=== PATIENT | female | born 1990 | race Two or more races ===

== ENCOUNTER → 2022-06-27 | Outpatient (CLI) | payer MEDICAID ==
[2022-06-27 08:52] LABS: Basophils # (auto) 0 10 ^3/uL (0-0.2); Basophils % (auto) 0.4 % (0.0-2.0); Eosinophils # (auto) 0.1 10 ^3/uL (0-0.8); Eosinophils % (auto) 1.3 % (0.0-7.0); Hematocrit 37.3 % (36.0-46.0); Hemoglobin 11.9 g/dL (12.2-16.2); Lymphocytes # (auto) 2.4 10 ^3/uL (0.4-5.4); Lymphocytes % (auto) 23.1 % (10.0-50.0); Mean Corpuscular Hemoglobin 27.2 pg (28.0-32.0); Mean Corpuscular Hgb Conc. 31.9 g/dL (32.0-36.0); Mean Corpuscular Volume 85.1 fL (80.0-100.0); Monocytes # (auto) 0.6 10 ^3/uL (0-1.3); Neutrophils # (auto) 7.3 10 ^3/uL (1.6-8.6); Neutrophils % (auto) 69.2 % (37.0-80.0); Red Blood Cells 4.39 10^6/uL (4.0-5.20); Red Cell Distribution Width 13.3 % (11.8-14.3); White Blood Cell 10.5 10^3/uL (4.4-10.8)
== END | disposition home or self-care (01) ==
LOC: LAB 08:36
PROVIDERS: ATTEND Obstetrics & Gynecology
DX: Z34.80 Encounter for supervision of other normal pregnancy, unspecified trimester (principal); O99.810 Abnormal glucose complicating pregnancy
CPT/HCPCS: 36415; 82951; 83036; 85025

== ENCOUNTER → 2022-08-20 | Outpatient (CLI) | payer MEDICAID ==
[2022-08-20 09:20] LABS: Basophils # (auto) 0 10 ^3/uL (0-0.2); Basophils % (auto) 0.2 % (0.0-2.0); Eosinophils # (auto) 0.1 10 ^3/uL (0-0.8); Eosinophils % (auto) 1.4 % (0.0-7.0); Hematocrit 39.6 % (36.0-46.0); Hemoglobin 12.8 g/dL (12.2-16.2); Lymphocytes # (auto) 2.2 10 ^3/uL (0.4-5.4); Lymphocytes % (auto) 25.8 % (10.0-50.0); Mean Corpuscular Hgb Conc. 32.3 g/dL (32.0-36.0); Mean Corpuscular Volume 83.7 fL (80.0-100.0); Monocytes # (auto) 0.6 10 ^3/uL (0-1.3); Monocytes % (auto) 6.7 % (0.0-12.0); Neutrophils # (auto) 5.5 10 ^3/uL (1.6-8.6); Neutrophils % (auto) 65.9 % (37.0-80.0); Red Blood Cells 4.73 10^6/uL (4.0-5.20); Red Cell Distribution Width 13.6 % (11.8-14.3); White Blood Cell 8.4 10^3/uL (4.4-10.8)
[2022-08-21 06:06] LABS: RPR Non Reactive (Non Reactive)
== END | disposition home or self-care (01) ==
LOC: LAB 08:38
PROVIDERS: ATTEND Obstetrics & Gynecology
DX: Z34.80 Encounter for supervision of other normal pregnancy, unspecified trimester (principal); Z3A.00 Weeks of gestation of pregnancy not specified
CPT/HCPCS: 36415; 84112; 85025; 86592

== ENCOUNTER 2022-09-04 19:03 | Observation (INO) | payer MEDICAID ==
[2022-09-04] MEDS ORDERED: PREN-129 PO (20:13)
== END 2022-09-04 20:26 | disposition home or self-care (01) ==
LOC: LDRP 19:03
PROVIDERS: ADMIT Obstetrics & Gynecology; ATTEND Obstetrics & Gynecology
DX: O62.9 Abnormality of forces of labor, unspecified (principal); O36.8330 Maternal care for abnormalities of the fetal heart rate or rhythm, third trimester, not applicable or unspecified; Z3A.37 37 weeks gestation of pregnancy
CPT/HCPCS: 59025; 76818; 81002; 94760; G0378

== ENCOUNTER 2022-09-25 09:03 | Observation (INO) | payer MEDICAID ==
[~2022-09-25 09:03] MED LIST: PREN-129 PO
== END 2022-09-25 10:03 | disposition home or self-care (01) ==
LOC: LDRP 09:03
PROVIDERS: ADMIT Obstetrics & Gynecology; ATTEND Obstetrics & Gynecology
DX: O48.0 Post-term pregnancy (principal); Z3A.40 40 weeks gestation of pregnancy
CPT/HCPCS: 59025; 81002; 94760; G0378

== ENCOUNTER 2022-09-27 15:33 | Observation (INO) | payer MEDICAID | END 2022-09-27 17:31 | disposition home or self-care (01) | LOC: LDRP 15:33 | PROVIDERS: ADMIT Obstetrics & Gynecology; ATTEND Obstetrics & Gynecology | DX: O48.0 Post-term pregnancy (principal); Z3A.40 40 weeks gestation of pregnancy | CPT/HCPCS: 59025; 76818; 81002; G0378 ==

== ENCOUNTER 2022-09-29 09:09 | Observation (INO) | payer MEDICAID | END 2022-09-29 10:38 | disposition home or self-care (01) | LOC: LDRP 09:09 | PROVIDERS: ADMIT Obstetrics & Gynecology; ATTEND Obstetrics & Gynecology | DX: O48.0 Post-term pregnancy (principal); Z3A.40 40 weeks gestation of pregnancy | CPT/HCPCS: 59025; 76818; 81002; 94760; G0378 ==

== ENCOUNTER 2022-10-01 07:39 | Inpatient (IN) | payer MEDICAID ==
[~2022-10-01] VITALS: Ht 144.8 cm; Wt 74.4 kg
[2022-10-01] MEDS ORDERED: LIDOCAINE 2%HCL (LOCAL ANESTH.) INJ 10ml MDV IJ PRN (13:30)
[2022-10-01] MEDS ORDERED: PENICILLIN G POT 5MIL/D5 50ML 50 ML IV ONE (13:30)
[2022-10-01] MEDS ORDERED: PHISODERM TOP SOLN 240ML BTL TOP PRN (13:30)
[2022-10-01] MEDS ORDERED: WITCH HAZEL-GLYCERIN PAD TOP PRN (13:30)
[2022-10-01] MEDS ORDERED: DERMOPLAST 60ML BOTTLE TOP PRN (13:30)
[2022-10-01] MEDS ORDERED: BUTORPHANOL TARTRATE 2 MG/1 ML VIAL IV PRN ×2 (13:30)
[2022-10-01] MEDS ORDERED: PROMETHAZINE HCL 25 MG/ML 1ML IV PRN (13:30)
[2022-10-01 14:25] LABS: Basophils # (auto) 0 10 ^3/uL (0-0.2); Basophils % (auto) 0.2 % (0.0-2.0); Eosinophils # (auto) 0.1 10 ^3/uL (0-0.8); Eosinophils % (auto) 1.2 % (0.0-7.0); Hematocrit 41.7 % (36.0-46.0); Hemoglobin 13.8 g/dL (12.2-16.2); Lymphocytes % (auto) 27.6 % (10.0-50.0); Mean Corpuscular Hemoglobin 27.5 pg (28.0-32.0); Mean Corpuscular Hgb Conc. 33.2 g/dL (32.0-36.0); Mean Corpuscular Volume 82.9 fL (80.0-100.0); Monocytes # (auto) 0.5 10 ^3/uL (0-1.3); Monocytes % (auto) 6.7 % (0.0-12.0); Neutrophils # (auto) 4.6 10 ^3/uL (1.6-8.6); Neutrophils % (auto) 64.3 % (37.0-80.0); Nucleated Red Blood Cells % 0.1 %; Red Blood Cells 5.03 10^6/uL (4.0-5.20); Red Cell Distribution Width 13.8 % (11.8-14.3); White Blood Cell 7.2 10^3/uL (4.4-10.8)
[2022-10-01] MEDS: LACTATED RINGER'S 1,000 ML IV SCH ×3 (14:33→22:24)
[2022-10-01 14:39] LABS: Albumin 2.9 g/dL (3.4-5.0); BUN/Creatinine Ratio 19.4; Calcium 9.4 mg/dL (8.5-10.1); Potassium 3.8 mmol/L (3.5-5.1)
[2022-10-01 14:40] LABS: INR 0.88 (0.9-1.15); Partial Thromboplastin Time 27.1 sec (24.6-33.4)
[2022-10-01 14:42] LABS: Amphetamine Screen, Urine NEGATIVE (NEGATIVE); Cannabinoid Screen, Urine NEGATIVE (NEGATIVE); Cocaine Screen, Urine NEGATIVE (NEGATIVE); Opiate Scree,Urine NEGATIVE (NEGATIVE); Phencyclidine Screen, Urine NEGATIVE (NEGATIVE)
[2022-10-01 14:42] LABS: Bilirubin, Total 0.2 mg/dL (0.2-1.0); Total Protein 7.3 g/dL (6.4-8.2)
[2022-10-01 14:44] LABS: Barbiturate Scree,Urine NEGATIVE (NEGATIVE); Benzodiazephine Screen, Urine NEGATIVE (NEGATIVE)
[2022-10-01] MEDS: miSOPROStol 50 MCG per PRE-CUT 1/2 TAB PO PRN ×2 (15:20→20:11)
[2022-10-01] MEDS ORDERED: LACT. RINGERS/OXYTOCIN 20UNITS 500 ML IV ONE ×2 (16:15→16:45)
[2022-10-01 16:48] LABS: Urine Specific Gravity 1.009 (1.001-1.035)
[2022-10-01 16:49] LABS: Urine Blood Negative /uL (Negative)
[2022-10-01] MEDS ORDERED: PENICILLIN G POTASSIUM 2,500,000 UNITS in D5W 5% 50 ML IV SCH (17:30)
[2022-10-01] MEDS: PENICILLIN G POTASSIUM 2,500,000 UNITS in D5W 5% 50 ML IV SCH ×2 (19:32→23:24)
[2022-10-02] MEDS: miSOPROStol 50 MCG per PRE-CUT 1/2 TAB PO PRN (00:52)
[2022-10-02] MEDS: PENICILLIN G POTASSIUM 2,500,000 UNITS in D5W 5% 50 ML IV SCH ×3 (03:08→11:01)
[2022-10-02] MEDS ORDERED: LACT. RINGERS/OXYTOCIN 20UNITS 500 ML IV ONE ×2 (04:45→05:15)
[2022-10-02] MEDS ORDERED: TERBUTALINE SULFATE 1 MG/ML 1ML VIAL SC PRN (04:45)
[2022-10-02] MEDS ORDERED: LACT. RINGERS/OXYTOCIN 20UNITS 1,000 ML IV SCH (05:00)
[2022-10-02 06:06] LABS: RPR Non Reactive (Non Reactive)
[2022-10-02] MEDS: LACTATED RINGER'S 1,000 ML IV SCH ×2 (07:14→10:44)
[2022-10-02] MEDS ORDERED: ROPIVACAINE HCL 200 ML EPI SCH (08:15)
[2022-10-02] MEDS ORDERED: LIDOCAINE HCL 2 %PF INJ 10ML AMP IJ ONE (08:15)
[2022-10-02] MEDS ORDERED: ePHEDrine SULFATE 50 MG/ML AMP IV ONE (08:15)
[2022-10-02] MEDS ORDERED: fentaNYL CITRATE 100 MCG/2 ML VL IV ONE (08:15)
[2022-10-02] MEDS ORDERED: NALOXONE HCL 0.4 MG/ML VIAL IV ONE (08:15)
[2022-10-02] MEDS ORDERED: FAMOTIDINE (10MG/ML) 2ML VL IV PRN (10:45)
[2022-10-02] MEDS ORDERED: DexAMETHasone SOD PHOS 10MG/1ML VIAL INJ IV ONE (12:13)
[2022-10-02] MEDS ORDERED: ceFAZolin 2 GM in D5W 5% 100 ML IV STA (15:17)
[2022-10-02] MEDS ORDERED: ceFAZolin 1GM/50ML 100 ML IV ONE (15:27)
[2022-10-02] MEDS ORDERED: HYDR-4902 PO (15:29)
[2022-10-02] MEDS ORDERED: IBUP800T27 PO (15:29)
[2022-10-02] MEDS ORDERED: DOCU-94 PO (15:29)
[2022-10-02] MEDS ORDERED: fentaNYL CITRATE 100 MCG/2 ML VL ONE ×2 (15:55→16:42)
[2022-10-02] MEDS ORDERED: MIDAZOLAM HCL 2MG/2ML 2ml VIAL (1mg/ml) ONE (15:55)
[2022-10-02] MEDS ORDERED: LACT. RINGERS/OXYTOCIN 20UNITS 1,000 ML IV ONE (16:00)
[2022-10-02] MEDS ORDERED: ONDANSETRON HCL 4 MG/2 ML VIAL IV PRN ×3 (16:00→18:30)
[2022-10-02] MEDS ORDERED: GUM (CHEWING) 1 GUM CHEW CHEW ONE ×2 (16:00→18:30)
[2022-10-02] MEDS ORDERED: oxyTOCIN 10 UNIT/ML 10ML VIAL ONE (16:23)
[2022-10-02] MEDS ORDERED: MEPERIDINE HCL (25 MG/ML) 1ML VIAL ONE (16:24)
[2022-10-02] MEDS ORDERED: ePHEDrine SULFATE 50 MG/ML AMP IV PRN (17:00)
[2022-10-02] MEDS ORDERED: MORPHINE SULFATE 4 MG/ML SYR/VIAL IV PRN (17:00)
[2022-10-02] MEDS ORDERED: HYDROmorphone HCL 2 MG/ML VL/or syr IV PRN (17:00)
[2022-10-02] MEDS ORDERED: LABETALOL HCL 5 MG/ML 4ML SYRINGE IV PRN (17:00)
[2022-10-02 18:00] VITALS: BP 131/69
[2022-10-02] MEDS ORDERED: LACTATED RINGER'S 1,000 ML IV SCH (18:30)
[2022-10-02 19:00] VITALS: BP 115/66
[2022-10-02] MEDS: ACETAMINOPHEN IV 1000 MG/100ML (10MG/ML) IV SCH (21:37)
[2022-10-02 23:00] VITALS: BP 112/61
[2022-10-02] MEDS: ceFAZolin 1GM/50ML 50 ML IV SCH (23:10)
[2022-10-02 23:23] LABS: Basophils # (auto) 0 10 ^3/uL (0-0.2); Eosinophils # (auto) 0 10 ^3/uL (0-0.8); Hemoglobin 12.1 g/dL (12.2-16.2); Lymphocytes # (auto) 0.9 10 ^3/uL (0.4-5.4); Monocytes # (auto) 0.3 10 ^3/uL (0-1.3); Monocytes % (auto) 1.9 % (0.0-12.0)
[2022-10-02 23:25] LABS: Basophils % (auto) 0.2 % (0.0-2.0); Hematocrit 37.3 % (36.0-46.0); Lymphocytes % (auto) 5.4 % (10.0-50.0); Mean Corpuscular Hgb Conc. 32.6 g/dL (32.0-36.0); Mean Corpuscular Volume 82.8 fL (80.0-100.0); Neutrophils % (auto) 92.5 % (37.0-80.0); Red Cell Distribution Width 13.8 % (11.8-14.3); White Blood Cell 16.3 10^3/uL (4.4-10.8)
[2022-10-03] VITALS (7 sets, daily range): BP systolic 92–112; BP diastolic 58–78
[2022-10-03 05:48] LABS: Basophils # (auto) 0 10 ^3/uL (0-0.2); Eosinophils # (auto) 0 10 ^3/uL (0-0.8); Lymphocytes # (auto) 1.2 10 ^3/uL (0.4-5.4); Monocytes # (auto) 0.7 10 ^3/uL (0-1.3); Red Cell Distribution Width 13.6 % (11.8-14.3)
[2022-10-03 05:51] LABS: Hematocrit 36.2 % (36.0-46.0); Hemoglobin 11.8 g/dL (12.2-16.2); Lymphocytes % (auto) 7.4 % (10.0-50.0); Mean Corpuscular Hemoglobin 27.1 pg (28.0-32.0); Mean Corpuscular Hgb Conc. 32.6 g/dL (32.0-36.0); Mean Corpuscular Volume 83.3 fL (80.0-100.0); Monocytes % (auto) 4.2 % (0.0-12.0); Neutrophils # (auto) 14.7 10 ^3/uL (1.6-8.6); Neutrophils % (auto) 88.4 % (37.0-80.0); Red Blood Cells 4.35 10^6/uL (4.0-5.20); White Blood Cell 16.6 10^3/uL (4.4-10.8)
[2022-10-03] MEDS: ACETAMINOPHEN IV 1000 MG/100ML (10MG/ML) IV SCH (07:07)
[2022-10-03] MEDS: ceFAZolin 1GM/50ML 50 ML IV SCH ×2 (07:14→15:50)
[2022-10-03] MEDS ORDERED: HYDROcodone-ACET 5/325MG TAB PO PRN (09:30)
[2022-10-03] MEDS: HYDROcodone-ACET 5/325MG TAB PO PRN ×2 (10:56→18:58)
[2022-10-03] MEDS: DOCUSATE SOD 100 MG CAP PO SCH ×2 (10:56→22:00)
[2022-10-03] MEDS: SIMETHICONE 80 MG CHEWABLE TABLET PO SCH ×3 (12:00→22:00)
[2022-10-04] MEDS: IBUPROFEN 800 MG TAB PO PRN ×2 (00:16→15:46)
[2022-10-04 03:30] VITALS: BP 109/68
[2022-10-04 06:50] VITALS: BP 111/70
[2022-10-04] MEDS: HYDROcodone-ACET 5/325MG TAB PO PRN ×2 (09:20→17:15)
[2022-10-04] MEDS: SIMETHICONE 80 MG CHEWABLE TABLET PO SCH ×3 (10:13→22:07)
[2022-10-04] MEDS: DOCUSATE SOD 100 MG CAP PO SCH ×2 (10:13→21:54)
[2022-10-04 11:00] VITALS: BP 113/77
[2022-10-04 15:06] VITALS: BP 108/69
[2022-10-04 18:45] VITALS: BP 100/53
[2022-10-04] MEDS ORDERED: BISACODYL 10 MG RECT SUPP PR PRN (22:15)
[2022-10-04 23:00] VITALS: BP 103/61
[2022-10-05] MEDS: HYDROcodone-ACET 5/325MG TAB PO PRN ×2 (00:14→09:21)
[2022-10-05 03:30] VITALS: BP 110/73
[2022-10-05] MEDS: IBUPROFEN 800 MG TAB PO PRN (04:00)
[2022-10-05] MEDS: SIMETHICONE 80 MG CHEWABLE TABLET PO SCH (05:43)
[2022-10-05 07:00] VITALS: BP 86/56
[2022-10-05 11:00] VITALS: BP 99/56
== END 2022-10-05 13:50 | disposition home or self-care (01) | DRG 540 ==
LOC: LDRP 13:14 → OBSVTOIN 13:15 → LDRP 19:54
PROVIDERS: ADMIT Obstetrics & Gynecology; ATTEND Obstetrics & Gynecology
PROC: 10D00Z1 Extraction of Products of Conception, Low, Open Approach (ICD-10-PCS; principal; 2022-10-02 15:48)
DX: O48.0 Post-term pregnancy (principal); R71.0 Precipitous drop in hematocrit; F43.20 Adjustment disorder, unspecified; O69.1XX0 Labor and delivery complicated by cord around neck, with compression, not applicable or unspecified; O76 Abnormality in fetal heart rate and rhythm complicating labor and delivery; O77.0 Labor and delivery complicated by meconium in amniotic fluid; O99.344 Other mental disorders complicating childbirth; Z20.822 Contact with and (suspected) exposure to COVID-19; O99.824 Streptococcus B carrier state complicating childbirth; Z37.0 Single live birth; Z3A.41 41 weeks gestation of pregnancy; Z88.2 Allergy status to sulfonamides
CPT/HCPCS: 36415; 59025; 80053; 80307; 81003; 82948; 85025; 85610; 85730; 86592; 86850; 86900; 86901; 87426; 94760; 96360; 96361; 96365; G0378; J0131; J0690; J1100; J2250; J2540; J2590; J7060